=== PATIENT | male | born 2000 | race Caucasian/White ===

== ENCOUNTER 2023-12-29 16:40 | Emergency (ER) | payer SELFPAY ==
[2023-12-29 16:47] VITALS: BP 131/87; PULSE 102; RESP 18; TEMP 37.3; O2SAT 100
[2023-12-29 18:08] LABS: Basophils % 0.5 %; Eosinophils % 0.5 %; Hematocrit 50.7 % (37-53); Lymphocytes # 1.2 10^3/uL (0.8-4.8); Lymphocytes % 14.4 %; Mean Corpuscular HGB Conc 33.1 g/dL (30-55); Mean Corpuscular Hemoglobin 30.5 pg (27-33); Mean Corpuscular Volume 92.2 fl (82-101); Mean Platelet Volume 9.9 fL (7.4-10.4); Monocytes # 0.5 10^3/uL (0.2-0.9); Monocytes % 5.8 %; Neutrophils % 78.4 %; Nucleated Red Blood Cells % 0 %; Platelet Count 236 10^3/cmm (157-399); Red Cell Distribution Width 11.9 % (12.1-15.1); White Blood Count 8.41 10^3/uL (3.29-11.43)
[2023-12-29 18:30] LABS: Alanine Aminotransferase 14 U/L (0-41); Albumin Level 4.8 g/dL (3.5-5.2); Alkaline Phosphatase 104 U/L (40-130); Aspartate Amino Transferase 16 U/L (0-40); Blood Urea Nitrogen 12 mg/dL (6-20); Calcium 9.2 mg/dL (8.5-10.5); Carbon Dioxide 27 mmol/L (22-29); Chloride 102 mmol/L (98-107); Globulin 2.3 g/dL (1.3-4.6); Glomerular Filtration Rate 119.8 mL/min (90-130); Glucose 127 mg/dL (65-115); Lipase 61 U/L (13-60); Osmolality Calculated 291 mOsm/kg (285-295); Sodium 140 mmol/L (136-145); Total Bilirubin 0.7 mg/dL (0.15-1.2); Total Protein 7.1 g/dL (6.6-8.7)
--- NOTE | 2023-12-29 18:52 | ED_ITS ---
HPI - Abdominal Pain 2 General: Chief Complaint: Abdominal Pain Stated Complaint: abd pain Time Seen by Provider: 12/29/23 18:50 History of Present Illness: 23-year-old male patient comes in today for complaints of midepigastric pain. Patient reports pain started after a heavy night of drinking. Patient reports 2 nights ago he had more than 2 L of beer while out with a friend. Since then patient feels like he has continued abdominal discomfort with difficulty holding down fluids. Patient appears nontoxic. Skin is warm and dry. Patient appears in mild pain. Associated Symptoms: Reports nausea Review of Systems 2 General: Reports: 10 or more systems reviewed and unremarkable except in HPI and below GI: Reports: abdominal pain and nausea Physical Exam 2 Const: COMMON NORMALS: alert HENMT: COMMON NORMALS: normocephalic HEAD & SCALP: normocephalic Neck/C-Spine: COMMON NORMALS: full ROM Resp: COMMON NORMALS: normal respiratory effort Cardio: COMMON NORMALS: regular rate RATE: regular rate GI: COMMON NORMALS: Soft to palpation AUSCULTATION: Yes normoactive bowel sounds PALPATION: Yes Soft to palpation and Yes Tenderness to palpation present (GI) (Epigastric) Back/Pelvis: COMMON NORMALS: thoracic and lumbar spine normal to inspection Extremity: COMMON NORMALS: full ROM Neuro: SENSORIUM/ORIENTATION: Yes alert Skin: COMMON NORMALS: turgor normal GENERAL SKIN EXAM: turgor normal Course 2 Vital Signs: Vital signs: Vital Signs Temperature 99.1 F 12/29/23 16:47 Pulse Rate 83 12/29/23 20:09 Respiratory Rate 16 12/29/23 20:09 Blood Pressure 133/88 12/29/23 20:09 Pulse Oximetry 98 12/29/23 20:09 Oxygen Delivery Me thod Room Air 12/29/23 20:09 MDM - Abdominal Pain Medical Decision Making Patient presents with midepigastric pain after drinking heavily. Patient appears nontoxic. Skin is warm and dry. Color is pink. Vital signs are normal. Differential diagnosis includes dehydration, gastritis, pancreatitis, peptic ulcer disease. CBC and CMP noted some mild elevation in glucose at 127, and mild elevation in lipase at 61. Patient was given 1 L of IV fluids with resolution of symptoms. Believe patient probably had some mild dehydration with a mild episode of pancreatitis brought on by alcohol intoxication. Reviewed this exam with patient with recommendation avoiding binge drinking. Patient reports understanding and agreed to plan. Patient seem very committed to not avoiding any more alcohol usage. Patient will continue on clear liquid diet until abdominal pain is completely gone. Patient will then increase diet. Patient reported understanding and agreed. Lab Data 12/29/23 17:50 12/29/23 17:50 Labs/Radiology: Laboratory Results WBC 8.41 10^3/uL (3.29-11.43) 12/29/23 17:50 RBC 5.50 10^6/uL (3.85-5.65) 12/29/23 17:50 Hgb 16.80 g/dL (11.27-16.99) 12/29/23 17:50 Hct 50.7 % (37-53) 12/29/23 17:50 MCV 92.2 fl (82-101) 12/29/23 17:50 MCH 30.5 pg (27-33) 12/29/23 17:50 MCHC 33.1 g/dL (30-55) 12/29/23 17:50 RDW 11.9 % (12.1-15.1) L 12/29/23 17:50 Plt Count 236 10^3/cmm (157-399) 12/29/23 17:50 MPV 9.9 fL (7.4-10.4) 12/29/23 17:50 Neut % (Auto) 78.4 % 12/29/23 17:50 Lymph % (Auto) 14.4 % 12/29/23 17:50 [place] % (Auto) 5.8 % 12/29/23 17:50 Eos % (Auto) 0.5 % 12/29/23 17:50 Baso % (Auto) 0.5 % 12/29/23 17:50 Neut # (Auto) 6.60 10^3/uL (1.8-7.7) 12/29/23 17:50 Lymph # (Auto) 1.2 10^3/uL (0.8-4.8) 12/29/23 17:50 Randolph # (Auto) 0.5 10^3/uL (0.2-0.9) 12/29/23 17:50 Eos # (Auto) 0.0 10^3/uL (0.0-0.8) 12/29/23 17:50 Baso # (Auto) 0.0 10^3/uL (0.0-0.1) 12/29/23 17:50 Nucleated RBC % (auto) 0 % 12/29/23 17:50 Nucleated RBCs # 0.0 /100WBC 12/29/23 17:50 Sodium 140 mmol/L (136-145) 12/29/23 17:50 Potassium 4.0 mmol/L (3.5-5.1) 12/29/23 17:50 Chloride 102 mmol/L (98-107) 12/29/23 17:50 Carbon Dioxide 27 mmol/L (22-29) 12/29/23 17:50 Anion Gap 15.0 (5-19) 12/29/23 17:50 BUN 12 mg/dL (6-20) 12/29/23 17:50 Creatinine 0.8 mg/dL (0.7-1.2) 12/29/23 17:50 GFR Calculation 119.8 mL/min (90-130) 12/29/23 17:50 Glucose 127 mg/dL (65-115) H 12/29/23 17:50 Calculated Osmolality 291 mOsm/kg (285-295) 12/29/23 17:50 Calcium 9.2 mg/dL (8.5-10.5) 12/29/23 17:50 Total Bilirubin 0.7 mg/dL (0.15-1.2) 12/29/23 17:50 AST 16 U/L (0-40) 12/29/23 17:50 ALT 14 U/L (0-41) 12/29/23 17:50 Alkaline Phosphatase 104 U/L (40-130) 12/29/23 17:50 Total Protein 7.1 g/dL (6.6-8.7) 12/29/23 17:50 Albumin 4.8 g/dL (3.5-5.2) 12/29/23 17:50 Globulin 2.3 g/dL (1.3-4.6) 12/29/23 17:50 Lipase 61 U/L (13-60) H 12/29/23 17:50 Urine Color Yellow (Yellow) 12/29/23 18:49 Urine Appearance Clear (CLEAR) 12/29/23 18:49 Urine pH 6.5 (5-7) 12/29/23 18:49 Ur Specific [place] 1.020 (1.005-1.030) 12/29/23 18:49 Urine Protein Neg (Negative) 12/29/23 18:49 Urine Glucose (UA) Norm (Normal) 12/29/23 18:49 Urine Ketones 1+ (Negative) H 12/29/23 18:49 Urine Blood Neg (Negative) 12/29/23 18:49 Urine Nitrate Negative (Negative) 12/29/23 18:49 Urine Bilirubin Neg (Negative) 12/29/23 18:49 Urine Urobilinogen Norm mg/dL (Negative) 12/29/23 18:49 Ur Leukocyte Esterase Negative (Negative) 12/29/23 18:49 No radiology studies performed this visit Discharge Plan Discharge Patient Disposition: Home Clinical Impression: Abdominal pain Qualifiers: Abdominal location: epigastric Qualified Code(s): R10.13 - Epigastric pain Condition: Stable Discharge Orders: Discharge ED (Routine); Ordered 12/29/23 Ordered By: Enzo Mckoy Discharge Diet: Usual diet Discharge Activity: Increase activity as tolerated Patient Instructions: Abdominal Pain (ED) Activity Restrictions/Additional Instructions: Stay on clear liquid diet until abdominal pain resolves. Increase diet after about 24 hours as tolerated. Follow-up with primary care. Return to ED for worsening symptoms such as high fever greater than 100.4, blood in vomit or stool, or new concerns. Coding Level of Care Code ED [employer] for [employer] Waite
[2023-12-29 19:04] LABS: Add Urine Microscopic? NO; Charge for UA Resulting for Rev
[2023-12-29 19:07] VITALS: BP 129/76; PULSE 99; RESP 18; O2SAT 98
[2023-12-29] MEDS: ondansetron 2 mg/ML SDV 2 mL 4 MG IVP (19:09)
[2023-12-29] MEDS: alum-mag-hydroxide-sime 30 mL UDC PO (19:09)
[2023-12-29] MEDS: lactated ringers 1,000 ML 999 ML IV (19:10)
[2023-12-29 19:12] LABS: Bilirubin Urine Neg (Negative); Blood Urine Neg (Negative); Glucose Urine UA Norm (Normal); Ketones Urine 1+ (Negative); Leukocyte Esterase Urine Negative (Negative); Nitrate Urine Negative (Negative); Protein Urine Neg (Negative); Urine Appearance Clear (CLEAR); Urine Color Yellow (Yellow); Urobilinogen Urine Norm (Negative); pH Urine 6.5 (5-7)
[2023-12-29 20:09] VITALS: BP 133/88; PULSE 83; RESP 16; O2SAT 98
== END 2023-12-29 20:30 | disposition home or self-care (01) ==
PROVIDERS: Emergency Medicine; Emergency Provider Nurse Practitioner Family
DX: R10.13 Epigastric pain (principal)
CPT/HCPCS: 36415; 80053; 81003; 83690; 85025; 96374; 99284; J2405; J7120